=== PATIENT | female | born 1930 | race Caucasian/White ===

== ENCOUNTER → 2019-09-28 | Outpatient (CLI) | payer MEDICARE ==
--- NOTE | 2019-09-28 15:05 | Diagnostic Imaging Report ---
PROCEDURE: X-RAY MODIFIED BARIUM SWALLOW COMPARISON: None. INDICATION: Dysphasia Radiation Details: Fluoroscopy time: 1.18 minutes Cumulative dose: 9.99 mGy DISCUSSION: Fluoroscopic examination was performed in conjunction with speech pathology during swallowing a variety of thin and thick liquid consistencies. Provided images demonstrate a Zenker's diverticulum. No laryngeal penetration or aspiration. CONCLUSION: Modified barium swallow demonstrating Zenker's diverticulum. No laryngeal penetration or aspiration. Please refer to the speech pathology report for further details. Signed by: Mkcinley Godwin MD on 09/28/2019 3:02 PM
== END ==
LOC: DX 11:50
PROVIDERS: ATTEND Internal Medicine Gastroenterology
DX: R13.12 Dysphagia, oropharyngeal phase (principal)
CPT/HCPCS: 74230

== ENCOUNTER 2019-10-15 12:39 | Emergency (ER) | payer MEDICARE, OTHER ==
[~2019-10-15] VITALS: Ht 172.7 cm; Wt 74.8 kg
--- OUTSIDE RECORDS SUMMARY | 2019-10-15 12:42 | XMS REPORT | Encounter Summary ---
Author Organization Unknown Address [address] [place] [address] Phone [phone] Care Team Providers Care Almond Roaster Name Role Phone Dr. Chemo Oconnell 3 [phone] Jazmine Snow (Daughter) 63 [phone] Sergo Herrera MD 105 [phone] Kenny Colin MD 107 [phone] Lloyd Romero MD 111 [phone] Nathan Mcneal 118 [phone] Pierre Hsieh MD 130 [phone] Reason for Visit Hyperlipidemia; Benign essential hypertension; Insomnia; Type 2 diabetes mellitus; cough / congestion Instructions 1. Benign essential hypertension 2. Type 2 diabetes mellitus HbA1c (hemoglobin A1c), blood 3. Hyperlipidemia high cholesterol: care instructions CMP, serum or plasma lipid panel, serum 4. Body mass index 25-29 - overweight learning about healthy weight 5. Senile purpura 6. Peripheral vascular disease 7. Chronic kidney disease stage 4 8. Acute sinusitis Kenalog 40 mg/mL suspension for injection Augmentin 875 mg-125 mg tablet fluticasone propionate 50 mcg/actuation nasal spray,suspension Tessalon Perles 100 mg capsule Discussion Note: None recorded. Plan of Care Reminders Provider Appointments Est Patient 05/13/2019 1:30PM Chemo Navarrete MD Lab HbA1C (Hemoglobin a1C), Blood 02/10/2019 [facility] CMP, Serum or Plasma 02/10/2019 [facility] Lipid Panel, Serum 02/10/2019 [facility] Referral None recorded. Procedures None recorded. Surgeries None recorded. Imaging None recorded. Medications Name Start Date Augmentin 875 mg-125 mg tablet Take 1 tablet every 12 hours by oral route as directed for 10 days. BD Ultra-Fine Mini Pen Needle 31 gauge x 3/16" QD fluticasone propionate 50 mcg/actuation nasal spray,suspension USE 1 SPRAY INTO EACH NOSTRIL TWICE A DAY Kenalog 40 mg/mL suspension for injection Take 40 mg by injection route. Levemir FlexTouch U-100 Insulin 100 unit/mL (3 mL) subcutaneous pen Inject 28 units every day by subcutaneous route. losartan 25 mg tablet QD montelukast 10 mg tablet TAKE 1 TABLET BY MOUTH EVERY DAY OneTouch Delica Lancets 33 gauge use once daily OneTouch Ultra Blue Test Strip USE DIRECTED rosuvastatin 40 mg tablet TAKE 1 TABLET BY MOUTH EVERY DAY IN THE EVENING Tessalon Perles 100 mg capsule Take 1 capsule every 8 hours by oral route as needed. trazodone 100 mg tablet TAKE 1 TABLET BY MOUTH EVERY DAY AT BEDTIME NEEDED Zyrtec QD Medications Administered Name Date Kenalog 40 mg/mL suspension for injection Take 40 mg by injection route. [id number]:00 Vitals Height Weight BMI Blood Pressure 5 ft 6.3 in 165.4 lbs 26.5 kg/m2 122/66 mm[Hg] Lab Results None recorded. Allergies Code Code System Name Reaction Severity Status Onset 86251 RxNorm Neosporin ([id number]) Active NKDA Problems Name Status Onset Date Source Type 2 Diabetes Mellitus without Complication Active 10/09/2016 Hyperlipidemia Active 10/09/2016 Body Mass Index 25-29 - Overweight Active 10/09/2016 Insomnia Active 10/09/2016 Benign Essential Hypertension Active 10/09/2016 Senile Hyperkeratosis Active 10/09/2016 Multiple Skin Tags on Neck Active 10/09/2016 Dysphagia Active 10/09/2016 Zenker's Diverticulum Active 12/10/2016 Hiatal Hernia Active 12/10/2016 Type 2 Diabetes Mellitus Active 01/25/2017 Gastroesophageal Reflux Disease without Esophagitis Active 01/25/2017 Serum Creatinine Raised Active 01/25/2017 Type II Diabetes Mellitus Uncontrolled Active 05/28/2017 Basal Cell Carcinoma of Skin Active 02/10/2019 Procedures Date Name Performed by 12/02/2018 Cancer Surgery Information not available 12/02/2011 Colonoscopy Information not available Hip Replacement Information not available Tonsillectomy Information not available Vaccine List Vaccine Type Hep B, adult mL mL mL influenza, high dose seasonal 10/09/20160.5 mL 09/17/20170.5 mL 09/04/20180.5 mL pneumococcal conjugate PCV 13 10/09/20160.5 mL pneumococcal polysaccharide PPV23 01/21/20180.5 mL zoster 10/23/20160.65 mL Social History Smoking Status Never Smoker Past Encounters 02/10/2019 Benign Essential Hypertension; Type 2 Diabetes Mellitus; Hyperlipidemia; Body Mass Index 25-29 - Overweight; Senile Purpura; Peripheral Vascular Disease; Chronic Kidney Disease Stage 4; Acute Sinusitis Chemo Navarrete MD: [address] [place] [address], Ph. History of Present Illness Note:F/u on chronic conditions. Compliant with meds. Non compliant with diet or exercise. Glucose readings at home 80s-100s. Not checking BPs at home. No side effects with meds. <div>Pt is complaining of nasal congestion, productive cough and sore throat since 2 weeks ago. Denies fever, sob, wheezing or chest pain< /div> Review of Systems:ROS as noted in the HPI Review of Systems None recorded. Physical Exam General Adult Exam (male) Reported By: Patient Constitutional: General Appearance: healthy-appearing. Level of Distress: NAD Psychiatric: Insight: good judgement. Mental Status: active and alert, normal mood, normal affect. Orientation: to time, to place, to person. Memory: recent memory normal, remote memory normal Eyes: Lids and Conjunctivae: non-injected, no discharge. EOM: EOMI ENMT: Ears: TMs clear. Nose: nares non-patent, nasal discharge--purulent, post nasal drip. Lips, Teeth, and Gums: no mouth or lip ulcers. Oropharynx: moist mucous membranes, erythema, tonsils absent Neck: Neck: supple, trachea midline. Lymph Nodes: cervical LAD. Thyroid: no enlargement, non-tender Lungs: Auscultation: breath sounds normal Cardiovascular: Heart Auscultation: RRR, normal S1, normal S2, no murmurs Musculoskeletal:: Motor Strength and Tone: normal, normal tone. Joints, Bones, and Muscles: normal movement of all extremities. Extremities: no edema Neurologic: Gait and Station: normal gait Skin: Inspection and palpation: ; ecchymoses in forearms
--- OUTSIDE RECORDS SUMMARY | 2019-10-15 12:42 | XMS REPORT | Encounter Summary ---
Author Organization Unknown Address [address] [place] [address] Phone [phone] Care Team Providers Care Plant Technical Specialist Name Role Phone Dr. Chemo Oconnell 3 [phone] [facility] 2 [phone] Jazmine Snow (Daughter) 63 [phone] Sergo Herrera MD 105 [phone] Kenny Colin MD 107 [phone] Lloyd Romero MD 111 [phone] Nathan Mcneal 118 [phone] Pierre Hsieh MD 130 [phone] Reason for Visit lab only visit Instructions 1. Hyperkalemia potassium, serum Discussion Note: None recorded. Patient educational handouts: No information available. Plan of Care Reminders Provider Appointments Est Patient 11/09/2019 4:00PM Sangita Velazquez MD Lab Potassium, Serum 09/01/2019 [facility] Referral None recorded. Procedures None recorded. Surgeries None recorded. Imaging None recorded. Medications Name Start Date Accu-Chek Guide strips USE ONCE DAILY BD Ultra-Fine Mini Pen Needle 31 gauge x 3/16" QD Claritin-D 24 Hour 1 tablet once a day Dymista 137 mcg-50 mcg/spray nasal spray [place] 1 spray every day by nasal route for 30 days. 08/13/2019 Levemir FlexTouch U-100 Insulin 100 unit/mL (3 mL) subcutaneous pen INJECT 30 UNITS SUBCUTANEOUSLY EVERY DAY Linzess 145 mcg capsule Take 1 capsule every day by oral route as needed. Linzess 72 mcg capsule Take 1 capsule every day by oral route as needed for 30 days. losartan 25 mg tablet TAKE 1 TABLET BY MOUTH EVERY DAY montelukast 10 mg tablet TAKE 1 TABLET BY MOUTH EVERY DAY neomycin 3.5 mg/g-polymyxin B 10,000 unit/g-dexameth 0.1 % eye oint Apply 1 application twice a day by ophthalmic route. olopatadine 0.2 % eye drops Instill 1 drop every day by ophthalmic route as needed. 06/19/2019 Probiotic DAILY rosuvastatin 40 mg tablet TAKE 1 TABLET BY MOUTH EVERY DAY IN THE EVENING trazodone 100 mg tablet TAKE 1 TABLET BY MOUTH EVERY DAY AT BEDTIME NEEDED Medications Administered None recorded. Vitals None recorded. Lab Results Date Name Specimen Result Interpretation Description Value Range Status Address 08/13/2019 Microalbumin/creatinine, Ratio, Urine Microalbumin Random Urine 83 ug/mL Final [facility]: [address] Normal Creatinine Random Urine 107.4 mg/dL 20.0-320.0 mg/dL Final [facility]: [address] High Microalbumin/creatinine (Random Urine) Ratio Calculated 77 mcg/mg creat Final [facility]: [address] 08/13/2019 CMP, Serum or Plasma High Alt 103 U/L 0-55 U/L Final [facility]: [address] High Ast 54 U/L 5-34 U/L Final [facility]: [address] High Bun 33.4 mg/dL 9.8-25.0 mg/dL Final [facility]: [address] Alk Phos 111 unit/L 40-150 unit/L Final [facility]: [address] High Glucose 135 mg/dL 70-99 mg/dL Final [facility]: [address] Albumin 3.5 g/dL 3.4-5.1 g/dL Final [facility]: [address] High Creatinine 1.72 mg/dL 0.57-1.11 mg/dL Final [facility]: [address] ABNORMAL eGFR Non- 28 mL/min/1.73m2 Final [facility]: [address] Total Bilirubin 0.3 mg/dL 0.2-1.2 mg/dL Final [facility]: [address] ABNORMAL eGFR - 34 mL/min/1.73m2 Final [facility]: [address] Sodium 142 mEq/L 135-145 mEq/L Final [facility]: [address] High Potassium 5.4 mEq/L 3.5-5.1 mEq/L Final [facility]: [address] Chloride 107 mmol/L 98-110 mmol/L Final [facility]: [address] Total Protein 6.4 g/dL 6.1-8.2 g/dL Final [facility]: [address] Calcium 9.2 mg/dL 8.6-10.4 mg/dL Final [facility]: [address] Co2 27.6 mmol/L 20.0-32.0 mmol/L Final [facility]: [address] Anion Gap 7 calc Final [facility]: [address] 08/13/2019 Lipid Panel, Serum Low Hdl 39 mg/dL Final [facility]: [address] High Triglyceride 163 mg/dL 0-150 mg/dL Final [facility]: [address] VLDL (Calculated) 33 mg/dL Final [facility]: [address] cholesterol/HDL Ratio 3.7 mg/dL Final [facility]: [address] non-HDL Cholesterol (Calculated) 104 mg/dL 0-160 mg/dL Final [facility]: [address] Cholesterol 143 mg/dL 0-200 mg/dL Final [facility]: [address] LDL (Calculated) 71 mg/dL 0-130 mg/dL Final [facility]: [address] 08/13/2019 HbA1C (Hemoglobin a1C), Blood High A1C W/eag 8.4 % 1.0-5.7 % Final [facility]: [address] Average Blood Glucose 194 mg/dL Final [facility]: [address] Allergies Code Code System Name Reaction Severity Status Onset 27173 RxNorm Neosporin ([id number]) Active Problems Name Status Onset Date Source Type 2 Diabetes Mellitus without Complication Active 10/09/2016 Hyperlipidemia Active 10/09/2016 Body Mass Index 25-29 - Overweight Active 10/09/2016 Insomnia Active 10/09/2016 Benign Essential Hypertension Active 10/09/2016 Multiple Skin Tags on Neck Active 10/09/2016 Senile Hyperkeratosis Active 10/09/2016 Dysphagia Active 10/09/2016 Zenker's Diverticulum Active 12/10/2016 Hiatal Hernia Active 12/10/2016 Type 2 Diabetes Mellitus Active 01/25/2017 Gastroesophageal Reflux Disease without Esophagitis Active 01/25/2017 Serum Creatinine Raised Active 01/25/2017 Type II Diabetes Mellitus Uncontrolled Active 05/28/2017 Basal Cell Carcinoma of Skin Active 02/10/2019 Procedures Date Name Performed by 08/12/2019 Eye Surgery Procedure Information not available 12/02/2018 Cancer Surgery Information not available Colonoscopy Information not available Hip Replacement Information not available Tonsillectomy Information not available 08/23/2019 US, Abdomen [facility] (Imaging) [address] [place] [address] (Work Place) Vaccine List Vaccine Type Hep B, adult mL 02/22/20171 mL 07/25/20171 mL influenza, high dose seasonal 10/09/20160.5 mL 09/17/20170.5 mL 09/04/20180.5 mL 08/13/20190.5 mL pneumococcal conjugate PCV 13 10/09/20160.5 mL pneumococcal polysaccharide PPV23 01/21/20180.5 mL zoster 10/23/20160.65 mL Social History Tobacco Smoking Status Never Smoker Past Encounters 09/01/2019 Hyperkalemia Chemo Navarrete MD: [address] [place] [address], Ph. 08/13/2019 Adult Health Examination; Body Mass Index 25-29 - Overweight; Depression Screening; Alcohol Consumption Screening; Influenza Vaccination; Benign Essential Hypertension; Hyperlipidemia; Type 2 Diabetes Mellitus; Chronic Kidney Disease Stage 3; At Risk for Falls; Chronic Constipation; Dysphagia Chemo Navarrete MD: [address] [place] [address], Ph. History of Present Illness None recorded. Review of Systems None recorded. Physical Exam None recorded.
--- OUTSIDE RECORDS SUMMARY | 2019-10-15 12:42 | XMS REPORT | Encounter Summary ---
Author Organization Unknown Address [address] [place] [address] Phone [phone] Care Team Providers Care Scout Professional Sports Name Role Phone Dr. Chemo Oconnell 3 [phone] [facility] 2 [phone] Jazmine Snow (Daughter) 63 [phone] Sergo Herrera MD 105 [phone] Kenny Colin MD 107 [phone] Lloyd Romero MD 111 [phone] Nathan Mcneal 118 [phone] Pierre Hsieh MD 130 [phone] Reason for Visit lab only visit Instructions 1. Type 2 diabetes mellitus HbA1c (hemoglobin A1c), blood Discussion Note: None recorded. Patient educational handouts: No information available. Plan of Care Reminders Provider Appointments Est Patient 08/13/2019 4:30PM Chemo Navarrete MD Lab HbA1C (Hemoglobin a1C), Blood 05/22/2019 [facility] Referral None recorded. Procedures None recorded. Surgeries None recorded. Imaging None recorded. Medications Name Start Date BD Ultra-Fine Mini Pen Needle 31 gauge x 3/16" QD Claritin-D 12 Hour take one tablet daily Dymista 137 mcg-50 mcg/spray nasal spray [place] 1 spray twice a day by intranasal route as directed for 30 days. fluticasone propionate 50 mcg/actuation nasal spray,suspension USE 1 SPRAY INTO EACH NOSTRIL TWICE A DAY Levemir FlexTouch U-100 Insulin 100 unit/mL (3 mL) subcutaneous pen Inject 30 units every day by subcutaneous route for 90 days. Linzess 145 mcg capsule 05/14/2019 Linzess 72 mcg capsule Take 1 capsule every day by oral route as needed for 30 days. losartan 25 mg tablet Take 1 tablet every day by oral route. montelukast 10 mg tablet TAKE 1 TABLET BY MOUTH EVERY DAY olopatadine 0.2 % eye drops as needed OneTouch Delica Lancets 33 gauge use once daily OneTouch Ultra Blue Test Strip USE DIRECTED rosuvastatin 40 mg tablet TAKE 1 TABLET BY MOUTH EVERY DAY IN THE EVENING trazodone 100 mg tablet TAKE 1 TABLET BY MOUTH EVERY DAY AT BEDTIME NEEDED Medications Administered None recorded. Vitals None recorded. Lab Results None recorded. Allergies Code Code System Name Reaction Severity Status Onset 79667 RxNorm Neosporin ([id number]) Active Problems Name Status Onset Date Source [...] Type Hep B, adult mL 02/22/20171 mL mL influenza, high dose seasonal 10/09/20160.5 mL 09/17/20170.5 mL 09/04/20180.5 mL pneumococcal conjugate PCV 13 10/09/20160.5 mL pneumococcal polysaccharide PPV23 01/21/20180.5 mL zoster 10/23/20160.65 mL Social History Smoking Status Never Smoker Past Encounters 05/22/2019 Type 2 Diabetes Mellitus Chemo Navarrete MD: [address] [place] [address], Ph. 05/14/2019 Benign Essential Hypertension; Insomnia; Type 2 Diabetes Mellitus without Complication; Hyperlipidemia; Multiple Environmental Allergies; Body Mass Index 25-29 - Overweight; Screening for Malignant Neoplasm of Breast; Major Depressive Disorder; Secondary Hyperparathyroidism; Chronic Constipation Chemo Navarrete MD: [address] [place] [address], Ph. History of Present Illness None recorded. Review of Systems None recorded. Physical Exam None recorded.
--- OUTSIDE RECORDS SUMMARY | 2019-10-15 12:42 | XMS REPORT | Encounter Summary ---
Author Organization Unknown Address [address] [place] [address] Phone [phone] Care Team Providers Care Bomb Loader Name Role Phone Dr. Chemo Oconnell 3 [phone] [facility] 2 [phone] Jazmine Snow (Daughter) 63 [phone] Sergo Herrera MD 105 [phone] Kenny Colin MD 107 [phone] Lloyd Romero MD 111 [phone] Nathan Mcneal 118 [phone] Pierre Hsieh MD 130 [phone] Reason for Visit sore throat Instructions 1. Seasonal allergy Bromfed DM 2 mg-30 mg-10 mg/5 mL oral syrup Medrol (Markel) 4 mg tablets in a dose pack loratadine-pseudoephedrine ER 10 mg-240 mg tablet,extended [id number] 2. Type 2 diabetes mellitus without complication 3. Body mass index 25-29 - overweight learning about healthy weight 4. Benign essential hypertension Discussion Note: None recorded. Plan of Care Reminders Provider Appointments Est Patient 05/13/2019 1:30PM Chemo Navarrete MD Lab None recorded. Referral None recorded. Procedures None recorded. Surgeries None recorded. Imaging None recorded. Medications Name Start Date amoxicillin 875 mg-potassium clavulanate 125 mg tablet Take 1 tablet every 12 hours by oral route as directed for 10 days. BD Ultra-Fine Mini Pen Needle 31 gauge x 3/16" QD benzonatate 100 mg capsule Take 1 capsule every 8 hours by oral route as needed. Bromfed DM 2 mg-30 mg-10 mg/5 mL oral syrup Take 10 mL every 6-8 hours by oral route as needed. fluticasone propionate 50 mcg/actuation nasal spray,suspension USE 1 SPRAY INTO EACH NOSTRIL TWICE A DAY Levemir FlexTouch U-100 Insulin 100 unit/mL (3 mL) subcutaneous pen Inject 28 units every day by subcutaneous route. loratadine-pseudoephedrine ER 10 mg-240 mg tablet,extended [id number] Take 1 tablet every day by oral route as needed for 14 days. losartan 25 mg tablet QD Medrol (Markel) 4 mg tablets in a dose pack UD montelukast 10 mg tablet TAKE 1 TABLET BY MOUTH EVERY DAY olopatadine 0.2 % eye drops MozidoToGeoPalz Delica Lancets 33 gauge use once daily MozidoToGeoPalz Ultra Blue Test Strip USE DIRECTED rosuvastatin 40 mg tablet TAKE 1 TABLET BY MOUTH EVERY DAY IN THE EVENING trazodone 100 mg tablet TAKE 1 TABLET BY MOUTH EVERY DAY AT BEDTIME NEEDED Zyrtec QD Medications Administered None recorded. Vitals Height Weight BMI Blood Pressure 5 ft 6.3 in 168 lbs 26.9 kg/m2 130/64 mm[Hg] Lab Results Date Name Specimen Result Interpretation Description Value Range Status Address 02/10/2019 CMP, Serum or Plasma Alt 18 U/L 0-55 U/L Final [facility] Laboratory: [address] Ast 22 U/L 5-34 U/L Final [facility] Laboratory: [address] High Bun 25.0 mg/dL 9.8-20.1 mg/dL Final [facility] Laboratory: [address] Alk Phos 124 unit/L 40-150 unit/L Final [facility] Laboratory: [address] High Glucose 241 mg/dL 70-99 mg/dL Final [facility] Laboratory: [address] Low Albumin 3.3 g/dL 3.5-5.0 g/dL Final [facility] Laboratory: [address] High Creatinine 1.65 mg/dL 0.57-1.11 mg/dL Final [facility] Laboratory: [address] ABNORMAL eGFR Non- 29 mL/min/1.73m2 Final [facility] Laboratory: [address] Total Bilirubin 0.4 mg/dL 0.2-1.2 mg/dL Final [facility] Laboratory: [address] Hernadez [address] ABNORMAL eGFR - 36 mL/min/1.73m2 Final [facility] Laboratory: [address] Sodium 140 mEq/L 136-145 mEq/L Final [facility] Laboratory: [address] Potassium 4.7 mEq/L 3.5-5.1 mEq/L Final [facility] Laboratory: [address] Chloride 106 mmol/L 98-107 mmol/L Final [facility] Laboratory: [address] Low Total Protein 6.3 g/dL 6.4-8.3 g/dL Final [facility] Laboratory: [address] Calcium 9.1 mg/dL 8.4-10.2 mg/dL Final [facility] Laboratory: [address] Co2 25.5 mmol/L 23.0-31.0 mmol/L Final [facility]: [address] Anion Gap 9 calc Final [facility] Laboratory: [address] 02/10/2019 Lipid Panel, Serum Low Hdl 33 mg/dL 40-60 mg/dL Final [facility]: [address] High Triglyceride 198 mg/dL 0-149 mg/dL Final [facility] Laboratory: [address] VLDL Calc. 40 mg/dL Final [facility] Laboratory: [address] cholesterol/HDL Ratio 4.3 mg/dL Final [facility] Laboratory: [address] non-HDL Cholesterol Calc. 109 mg/dL 0-160 mg/dL Final [facility] Laboratory: [address] Cholesterol 142 mg/dL 0-199 mg/dL Final [facility] Laboratory: [address] LDL Calc. 69 mg/dL 0-130 mg/dL Final [facility] Laboratory: [address]adez [address] 02/10/2019 HbA1C (Hemoglobin a1C), Blood High A1C W/eag 8.9 % 1.0-5.7 % Final [facility] Laboratory: [address] Average Blood Glucose 209 mg/dL Final [facility] Laboratory: [address] Allergies Code Code System Name Reaction Severity Status Onset 23534 RxNorm Neosporin (Yul-vhl-oywui) Active NKDA Problems Name Status Onset Date [...] History Smoking Status Never Smoker Past Encounters 03/13/2019 Seasonal Allergy; Type 2 Diabetes Mellitus without Complication; Body Mass Index 25-29 - Overweight; Benign Essential Hypertension Sangita Velazquez MD: [address] [place] [address], Ph. 02/10/2019 Benign Essential Hypertension; Type 2 Diabetes Mellitus; Hyperlipidemia; Body Mass Index 25-29 - Overweight; Senile Purpura; Peripheral Vascular Disease; Chronic Kidney Disease Stage 4; Acute Sinusitis Chemo Navarrete MD: [address] [place] [address], Ph. History of Present Illness Note:88yo female presents for evaluation of sore throat. Is a pt of Dr Oconnell. Was in to see him last month & was found to have increased A1c of 8.9%. Increased Levemir from 28u to 35units, but found morning blood sugars to be too low (lowest blood sugar about 58), so pt decreased Levemir to 30units qpm. Took the 30units past 3 nights - blood sugar yesterday morning was 74.<div>
<div> Still having trouble with sore throat, nasal congestion, dry cough for past noel h. No fever, shortness of breath, wheezing or chest pain. No ear pain.</div><div >Does have seasonal allergies -taking Zyrtec, Singulair, and Flonase bid.</div>< div> in Jan & was sick with sinus infection then, too.< /div><div>Had kenalog injection last visit with some improvement, but not resolution. Took course of Augmentin & tessalon perles.</div><div>NKDA.</div ><div>Had tonsils out at age 6yo. Had freq strep as child, always with "weak" throat.</div><div>Never smoked.</div><div></div></div> Review of Systems:ROS as noted in the HPI Review of Systems Comprehensive General Adult ROS Reported By: Patient Constitutional: Constitutional: no fever Eyes: Eyes: no vision change ENMT: Ears: no difficulty hearing, no ear pain. Nose: no frequent nosebleeds, nose problems, sinus problems. Mouth/Throat: sore throat Cardiovascular: Cardiovascular: no chest pain Respiratory: Respiratory: no wheezing, no shortness of breath, no coughing up blood, cough Gastrointestinal: Gastrointestinal: no abdominal pain, no nausea, no vomiting, no diarrhea Neurologic: Neurologic: no headaches Endocrine: Endocrine: no fatigue Allergic/Immunologic: Allergy/Immunologic: runny nose, sinus pressure Physical Exam General Adult Exam (male), Upper Respiratory Infection Exam Comprehensive Reported By: Patient Constitutional: General Appearance: healthy-appearing; elderly, pleasant. Level of Distress: NAD Psychiatric: Insight: good judgement. Mental Status: active and alert, normal mood, normal affect. Orientation: to time, to place, to person. Memory: recent memory normal, remote memory normal Eyes: Lids and Conjunctivae: non-injected, no discharge. Pupils: PERRLA. EOM: EOMI ENMT: Ears: TMs clear. Nose: no lesions on external nose, no sinus tenderness, pink and moist, nares non-patent, nasal discharge--purulent, post nasal drip. Lips, Teeth, and Gums: no mouth or lip ulcers. Oropharynx: moist mucous membranes, erythema, tonsils absent Neck: Neck: supple, trachea midline, symmetrical. Lymph Nodes: cervical LAD. Thyroid: no enlargement, non-tender Lungs: Auscultation: breath sounds normal, good air movement, no wheezing, no rales/crackles Cardiovascular: Heart Auscultation: RRR, normal S1, normal S2, no murmurs. Auscultation regular rate and rhythm. Observation/Palpation of peripheral vascular system carotid pulse normal Musculoskeletal:: Motor Strength and Tone: normal, normal tone. Joints, Bones, and Muscles: normal movement of all extremities. Extremities: no edema Neurologic: Gait and Station: normal gait Skin: Inspection and palpation: ; ecchymoses in forearms. Inspection and palpation: no rash Ears: Right External auditory canal normal appearance. Left External auditory canal normal appearance. Right Tympanic membrane pearly gallagher, landmarks clear. Left Tympanic membrane: pearly gallagher, landmarks clear Oral Cavity/Mouth: Oral Mucosa: normal Lymph Nodes: Cervical no palpable lymph node enlargement, no submandibular adenopathy, no posterior cervical adenopathy, no anterior cervical adenopathy
--- OUTSIDE RECORDS SUMMARY | 2019-10-15 12:42 | XMS REPORT ---
Author Author [facility] Address Unknown Phone Unavailable Care Team Providers Care Net Development Manager Name Role Phone KAMAR TRENA Unavailable Unavailable Problems This patient has no known problems. Allergies, Adverse Reactions, Alerts This patient has no known allergies or adverse reactions. Medications This patient has no known medications. Results Test Description Test Time Test Comments Text Results Atomic Results Result Comments MODIFIED BA. SWALLOW 2019-09-28 15:01:00 [place] [address] Patient Name: KELSY DAWSON MR #: [id number] : 1930 Age/Sex: 89/F Req #: [id number] [facility] Physician: Ordered by: TRENA GALVIN MD Report #: [id number] Location: DX Room/Bed: Procedure: [id number] DX/MODIFIED BA. SWALLOW Exam Date: 09/28/19 Exam Time: 1231 REPORT STATUS: Signed PROCEDURE: X-RAY MODIFIED BARIUM SWALLOW COMPARISON: None. INDICATION: Dysphasia Radiation Details: Fluoroscopy time: 1.18 minutes Cumulative dose: 9.99 mGy DISCUSSION: Fluoroscopic examination was performed in conjunction with speech pathology during swallowing a variety of thin and thick liquid consistencies. Provided images demonstrate a Zenker's diverticulum. No laryngeal penetration or aspiration. CONCLUSION: Modified barium swallow demonstrating Zenker's diverticulum. No laryngeal penetration or aspiration. Please refer to the speech pathology report for further details. Signed by: Jr Godwin MD on 09/28/2019 3:02 PM Dictated By: RJ GODWIN MD 1502 Transcribed By: FREDY on 09/28/191501 COPY TO: TRENA GALVIN MD
--- OUTSIDE RECORDS SUMMARY | 2019-10-15 12:42 | XMS REPORT | Encounter Summary ---
Author Organization Unknown Address [address] [place] [address] Phone [phone] Care Team Providers Care Svp Marketing Name Role Phone Dr. Chemo Oconnell 3 [phone] [facility] 2 [phone] Jazmine Snow (Daughter) 63 [phone] Sergo Herrera MD 105 [phone] Kenny Colin MD 107 [phone] Lloyd Romero MD 111 [phone] Nathan Mcneal 118 [phone] Pierre Hsieh MD 130 [phone] Reason for Visit Hyperlipidemia; Benign essential hypertension; Type 2 diabetes mellitus; Annual Depression Screening; AWV Annual Wellness Visit Female (VFP); Advance Care Plan; other - see typed reason; constipation Instructions 1. Adult health examination 2. Body mass index 25-29 - overweight learning about healthy weight 3. Depression screening learning about depression 4. Alcohol consumption screening learning about alcohol misuse 5. Influenza vaccination Fluzone High-Dose 2019-20 (PF) 180 mcg/0.5 mL intramuscular syringe 6. Benign essential hypertension 7. Hyperlipidemia high cholesterol: care instructions lipid panel, serum CMP, serum or plasma 8. Type 2 diabetes mellitus microalbumin/creatinine, ratio, urine HbA1c (hemoglobin A1c), blood 9. Chronic kidney disease stage 3 10. At risk for falls preventing falls: care instructions 11. Chronic constipation Linzess 145 mcg capsule gastroenterology referral - *Please call the patient and make an appointment* PLEASE SEND BACK CONSULT NOTES TO [phone] 12. Dysphagia gastroenterology referral Discussion Note: None recorded. Plan of Care Patient Instructions It was good to see you in the office today for your Medicare Annual Wellness Visit. You have been provided some information on healthy nutrition, including a diet rich in fruits and vegetables, minimizing simple carbohydrates, salt, and saturated fats. I want to encourage regular cardiovascular exercise such as walking at least 30 minutes daily, 5 times per week. Please remember to schedule any preventive health measures that we talked about today. You have also been provided education on fall prevention and community- based lifestyle interventions to help reduce health risks and promote healthy living in your Annual Wellness folder. Screening Recommendations 1. Vaccines Pneumonia: No further need Influenza: Ordered 2. Mammography Screening: No further screening necessary at this time 3. Colorectal Cancer Screening: IFOB (every year) Recommended today 4. Annual Depression Screening 5. Annual Alcohol Screening 6. Annual Fall Risk Screening 7. Annual Health Risk Assessment Patient Instructions on Filing Advance Directives Be sure that you have easy access to your paperwork for your medical power of attorney at law and advanced directives. Be sure that the designated person as well as important family members have copies of those forms as well. Please have contact information of your designee readily available. In the event of hospitalization, please bring those important documents with you for reference. Reminders Provider Appointments Est Patient 11/09/2019 4:00PM Sangita Velazquez MD Lab Microalbumin/creatinine, Ratio, Urine 08/13/2019 [facility] HbA1C (Hemoglobin a1C), Blood 08/13/2019 [facility] Lipid Panel, Serum 08/13/2019 [facility] CMP, Serum or Plasma 08/13/2019 [facility] Referral Gastroenterology Referral 08/13/2019 Kenny Colin MD Gastroenterology Referral 08/13/2019 Kenny Colin MD Procedures None recorded. Surgeries None recorded. Imaging None recorded. Medications Name Start Date Accu-Chek Guide strips USE ONCE DAILY BD Ultra-Fine Mini Pen Needle 31 gauge x 3/16" QD Claritin-D 24 Hour 1 tablet once a day Dymista 137 mcg-50 mcg/spray nasal spray [place] 1 spray every day by nasal route for 30 days. 08/13/2019 Levemir FlexTouch U-100 Insulin 100 unit/mL (3 mL) subcutaneous pen Inject 22 units every day by subcutaneous route for 90 days. Linzess 145 mcg capsule Take 1 capsule [...] BEDTIME NEEDED Medications Administered None recorded. Vitals Height Weight BMI Blood Pressure 5 ft 6 in 167.8 lbs 27.1 kg/m2 120/62 mm[Hg] Lab Results None recorded. Allergies Code Code System Name Reaction Severity Status Onset 65177 RxNorm Neosporin (Cno-yjw-rvelp) Active Problems Name Status Onset Date Source [...] Tobacco Smoking Status Never Smoker Past Encounters 08/13/2019 Adult Health Examination; Body Mass Index 25-29 - Overweight; Depression Screening; Alcohol Consumption Screening; Influenza Vaccination; Benign Essential Hypertension; Hyperlipidemia; Type 2 Diabetes Mellitus; Chronic Kidney Disease Stage 3; At Risk for Falls; Chronic Constipation; Dysphagia Chemo Navarrete MD: [address] [place] [address], Ph. History of Present Illness Mini Cog Reported By: Patient Functional Ability: Personal/Social/ Draw a clock and write in the numbers in the correct place, and set the time to 10 minutes after 11 o'clock was completed correctly? Yes, 3 word recall: Your nurse or doctor will ask you to remember 3 words. In 5 minutes, they will ask you to repeat them. Patient recalled 2 words Opioid Use Assessment Reported By: Patient Opioid Use Assessment:: Current Use of Opioids : no use of opioids (no further questions required) Note:F/u on chronic conditions. Needs refill in meds. Compliant with meds. Non compliant with diet or exercise. Glucose readings at home 80s-115s fasting. Not checking BPs at home. No side effects with meds. {{Yes|No}} Review of Systems Comprehensive General Adult ROS Reported By: Patient Constitutional: Constitutional: no fever Eyes: Eyes: no vision change ENMT: Ears: no ear pain. Nose: no sinus problems. Mouth/Throat: no sore throat Cardiovascular: Cardiovascular: no chest pain, no palpitations, no lightheadedness Respiratory: Respiratory: no cough, no wheezing, no shortness of breath Gastrointestinal: Gastrointestinal: no abdominal pain, no nausea, no vomiting, no diarrhea, constipation Musculoskeletal: Musculoskeletal: no muscle aches, no swelling in the extremities Neurologic: Neurologic: no loss of consciousness, no headaches Psychiatric: Psych: no depression, no alcohol abuse, no anxiety, no suicidal thoughts Physical Exam General Adult Exam (male) Reported By: Patient Constitutional: General Appearance: healthy-appearing. Level of Distress: NAD Eyes: Lids and Conjunctivae: non-injected, no discharge. EOM: EOMI ENMT: Ears: TMs clear. Nose: no sinus tenderness. Lips, Teeth, and Gums: no mouth or lip ulcers. Oropharynx: moist mucous membranes Neck: Neck: supple, trachea midline. Thyroid: no enlargement, non-tender Lungs: Auscultation: breath sounds normal Cardiovascular: Heart Auscultation: RRR, normal S1, normal S2, no murmurs. Neck vessels: no carotid bruits. Pulses including femoral / pedal: normal throughout Abdomen: Inspection and Palpation: soft, non-distended, no tenderness, no guarding Neurologic: Gait and Station: normal gait Skin: Inspection and palpation: no rash, no lesions
--- OUTSIDE RECORDS SUMMARY | 2019-10-15 12:42 | XMS REPORT | Encounter Summary ---
Author Organization Unknown Address [address] [place] [id number] Phone [phone] Care Team Providers Care Materials Specialist Name Role Phone Dr. Chemo Oconnell 3 [phone] [facility] 2 [phone] Jazmine Snow (Daughter) 63 [phone] Sergo Herrera MD 105 [phone] Kenny Colin MD 107 [phone] Lloyd Romero MD 111 [phone] Nathan Mcneal 118 [phone] Pierre Hsieh MD 130 [phone] Reason for Visit Hyperlipidemia; Benign essential hypertension; Type 2 diabetes mellitus without complication; Insomnia Instructions 1. Benign essential hypertension losartan 25 mg tablet 2. Insomnia trazodone 100 mg tablet 3. Type 2 diabetes mellitus without complication Levemir FlexTouch U-100 Insulin 100 unit/mL (3 mL) subcutaneous pen HbA1c (hemoglobin A1c), blood microalbumin:creatinine ratio, urine 4. Hyperlipidemia rosuvastatin 40 mg tablet high cholesterol: care instructions CMP, serum or plasma lipid panel, serum 5. Multiple environmental allergies montelukast 10 mg tablet Dymista 137 mcg-50 mcg/spray nasal spray 6. Body mass index 25-29 - overweight learning about healthy weight 7. Screening for malignant neoplasm of breast 8. Major depressive disorder 9. Secondary hyperparathyroidism 10. Chronic constipation Linzess 72 mcg capsule Discussion Note: None recorded. Plan of Care Reminders Provider Appointments Est Patient 08/13/2019 4:30PM Chemo Navarrete MD Lab HbA1C (Hemoglobin a1C), Blood 05/14/2019 [facility] CMP, Serum or Plasma 05/14/2019 [facility] Lipid Panel, Serum 05/14/2019 [facility] Microalbumin:creatinine Ratio, Urine 05/14/2019 [facility] Referral None recorded. Procedures None recorded. Surgeries None recorded. Imaging None recorded. Medications Name Start Date BD Ultra-Fine Mini Pen Needle 31 gauge x 3/16" QD Claritin-D 12 Hour take one tablet daily Dymista 137 mcg-50 mcg/spray nasal spray Sneads 1 spray twice a day by intranasal [...] BMI Blood Pressure 5 ft 6.3 in 170.4 lbs 27.3 kg/m2 124/60 mm[Hg] Lab Results None recorded. Allergies Code Code System Name Reaction Severity Status Onset 23251 RxNorm Neosporin (Zvh-amw-sskvv) Active Problems Name Status Onset Date Source [...] History Smoking Status Never Smoker Past Encounters 05/14/2019 Benign Essential Hypertension; Insomnia; Type 2 Diabetes Mellitus without Complication; Hyperlipidemia; Multiple Environmental Allergies; Body Mass Index 25-29 - Overweight; Screening for Malignant Neoplasm of Breast; Major Depressive Disorder; Secondary Hyperparathyroidism; Chronic Constipation Chemo Navarrete MD: [address] [place] [address], Ph. History of Present Illness Note:F/u on chronic conditions. Needs refills. Compliant with meds. Non compliant with diet or exercise. Not checking BPs at home. Glucose readings at home 60s-190s fasting. Most commonly 70s-90s. No side effects with meds. No new concerns. Review of Systems Comprehensive General Adult ROS Reported By: Patient Constitutional: Constitutional: no fever Eyes: Eyes: no vision change ENMT: Ears: no ear pain. Nose: no sinus problems. Mouth/Throat: no sore throat Cardiovascular: Cardiovascular: no chest pain, no palpitations, no lightheadedness Respiratory: Respiratory: no cough, no wheezing, no shortness of breath Gastrointestinal: Gastrointestinal: no abdominal pain, no nausea, no vomiting, no constipation, no diarrhea Musculoskeletal: Musculoskeletal: no muscle aches, no swelling in the extremities Neurologic: Neurologic: no loss of consciousness, no headaches Psychiatric: Psych: no depression, no alcohol abuse, no anxiety, no suicidal thoughts Physical Exam General Adult Exam (male) Reported By: Patient Constitutional: General Appearance: healthy-appearing, overweight. Level of Distress: NAD. Ambulation: ambulating normally Psychiatric: Insight: good judgement. Mental Status: active [...] S2, no murmurs. Neck vessels: no carotid bruits Musculoskeletal:: Motor Strength and Tone: normal, normal tone. Joints, Bones, and Muscles: normal movement of all extremities. Extremities: no edema Neurologic: Gait and Station: normal gait
--- OUTSIDE RECORDS SUMMARY | 2019-10-15 12:42 | XMS REPORT | Encounter Summary ---
Author Organization Unknown Address [address] [place] [address] Phone [phone] Care Team Providers Care Liner Inserter Name Role Phone Dr. Chemo Oconnell 3 [phone] [facility] 2 [phone] Jazmine Snow (Daughter) 63 [phone] Sergo Herrera MD 105 [phone] Kenny Colin MD 107 [phone] Lloyd Romero MD 111 [phone] Nathan Mcneal 118 [phone] Pierre Hsieh MD 130 [phone] Reason for Visit urinary issues/incontinence; other - see typed reason Instructions 1. Acute urinary tract infection culture, urine urinalysis, dipstick Bactrim DS 800 mg-160 mg tablet 2. Chronic kidney disease nephrology referral - *Please call the patient and make an appointment* PLEASE SEND BACK CONSULT NOTES TO [phone] 3. Overweight Discussion Note: None recorded. Patient educational handouts: No information available. Plan of Care Reminders Provider Appointments Est Patient 08/13/2019 4:30PM Chemo Navarrete MD Lab Culture, Urine 06/19/2019 [facility] Laboratory Urinalysis, Dipstick 06/19/2019 [facility] ([facility] [place] Referral Nephrology Referral 06/19/2019 [facility] Mcneal Procedures None recorded. Surgeries None recorded. Imaging None recorded. Medications Name Start Date Accu-Chek Diane Plus test strips Take 1 strip by miscell. route. Bactrim DS 800 mg-160 mg tablet Take 1 tablet every 12 hours by oral route as directed for 10 days. BD Ultra-Fine Mini Pen Needle 31 gauge x 3/16" QD Claritin-D 24 Hour 1 tablet once a day Levemir FlexTouch U-100 Insulin 100 unit/mL (3 mL) subcutaneous pen Inject 22 units every day by subcutaneous route for 90 days. Linzess 72 mcg capsule Take 1 capsule every day by oral route as needed for 30 days. losartan 25 mg tablet Take 1 tablet every day by oral route. montelukast 10 mg tablet TAKE 1 TABLET BY MOUTH EVERY DAY olopatadine 0.2 % eye drops Instill 1 drop every day by ophthalmic route as needed. 06/19/2019 rosuvastatin 40 mg tablet TAKE 1 TABLET BY MOUTH EVERY DAY IN THE EVENING trazodone 100 mg tablet TAKE 1 TABLET BY MOUTH EVERY DAY AT BEDTIME NEEDED Medications Administered None recorded. Vitals Height Weight BMI Blood Pressure 5 ft 6.3 in 166.8 lbs 26.7 kg/m2 126/70 mm[Hg] Lab Results Date Name Specimen Result Interpretation Description Value Range Status Address 05/22/2019 HbA1C (Hemoglobin a1C), Blood High A1C W/eag 8.4 % 1.0-5.7 % [facility] Laboratory: [address] [facility] [address], [place] Average Blood Glucose 194 mg/dL [facility] Laboratory: [address] [facility] [address], [place] Allergies Code Code System Name Reaction Severity Status Onset 13673 RxNorm Neosporin ([id number]) Active Problems Name Status Onset Date Source [...] by 12/02/2018 Cancer Surgery Information not available Colonoscopy Information not available Hip Replacement Information not available Tonsillectomy Information not available Vaccine List Vaccine Type Hep B, adult 01/25/20171 mL 02/22/20171 mL 08/24/55886 mL influenza, high dose seasonal 10/09/20160.5 mL 09/17/20170.5 mL 09/04/20180.5 mL pneumococcal conjugate PCV 13 10/09/20160.5 mL pneumococcal polysaccharide PPV23 01/21/20180.5 mL zoster 10/23/20160.65 mL Social History Smoking Status Never Smoker Past Encounters 06/19/2019 Acute Urinary Tract Infection; Chronic Kidney Disease; Overweight Chemo Navarrete MD: [address] [place] [address], Ph. 05/22/2019 Type 2 Diabetes Mellitus Chemo Navarrete MD: [address] [place] [address], Ph. History of Present Illness Note:Dysuria, suprapubic pain, urinary frequency and urgency since 2 weeks ago. Denies hematuria or fever. Review of Systems:ROS as noted in the HPI Review of Systems None recorded. Physical Exam General Adult Exam (male) Reported By: Patient Constitutional: General Appearance: healthy-appearing. Level of Distress: NAD Eyes: Lids and Conjunctivae: non-injected, no discharge ENMT: Ears: TMs clear. Nose: no sinus tenderness. Lips, Teeth, and Gums: no mouth or lip ulcers. Oropharynx: moist mucous membranes Neck: Neck: supple, trachea midline Lungs: Auscultation: breath sounds normal Cardiovascular: Heart Auscultation: RRR, normal S1, normal S2, no murmurs Abdomen: Inspection and Palpation: soft, non-distended, no tenderness, no guarding, no rebound tenderness, no masses, no CVA tenderness Neurologic: Gait and Station: normal gait
--- OUTSIDE RECORDS SUMMARY | 2019-10-15 12:42 | XMS REPORT | Encounter Summary ---
Author Organization Unknown Address [address] [place] [address] Phone [phone] Care Team Providers Care Sand Technician Name Role Phone Dr. Chemo Oconnell 3 [phone] [facility] 2 [phone] Jazmine Snow (Daughter) 63 [phone] Sergo Herrera MD 105 [phone] Kenny Colin MD 107 [phone] Lloyd Romero MD 111 [phone] Nathan Mcneal 118 [phone] Pierre Hsieh MD 130 [phone] Reason for Visit Hyperlipidemia; Benign essential hypertension; [...] appointment* PLEASE SEND BACK CONSULT NOTES TO [phone] 12. Dysphagia gastroenterology referral Discussion Note: None [...] your paperwork for your medical power of deputy attorney general and advanced directives. Be sure that the designated person as well as important family members have copies of those forms as well. Please have contact information of your designee readily available. In the event of hospitalization, please bring those important documents with you for reference. Reminders Provider Appointments Est Patient 11/09/2019 4:00PM Sangita Velazquez MD Lab Microalbumin/creatinine, Ratio, Urine 08/13/2019 [facility] HbA1C (Hemoglobin a1C), Blood 08/13/2019 [facility] Lipid Panel, Serum 08/13/2019 [facility] CMP, Serum or Plasma 08/13/2019 [facility] Referral Gastroenterology Referral 08/13/2019 Kenny Colin MD Gastroenterology Referral 08/13/2019 Kenny Colin MD Procedures None recorded. Surgeries None recorded. Imaging None recorded. Medications Name Start Date Accu-Chek Guide strips USE ONCE DAILY BD Ultra-Fine Mini Pen Needle 31 gauge x 3/16" QD Claritin-D 24 Hour 1 tablet once a day Dymista 137 mcg-50 mcg/spray nasal spray [place] 1 spray every day by nasal route [...] Code System Name Reaction Severity Status Onset 01686 RxNorm Neosporin ([id number]) Active Problems Name Status Onset Date Source [...] Chronic Constipation; Dysphagia Chemo Navarrete MD: [address] [place] [address], Ph. History of Present Illness Mini Cog [...] Level of Distress: NAD. Ambulation: ambulating normally Eyes: Lids and Conjunctivae: non-injected, no discharge. EOM: EOMI ENMT: Ears: TMs clear. Nose: no sinus tenderness. Lips, Teeth, and Gums: no mouth or lip ulcers. Oropharynx: moist mucous membranes Neck: Neck: supple, trachea midline. Thyroid: no enlargement, non-tender Lungs: Auscultation: breath sounds normal Cardiovascular: Heart Auscultation: RRR, normal S1, normal S2, no murmurs. Neck vessels: no carotid bruits Abdomen: Inspection and Palpation: soft, non-distended, no tenderness, no guarding Musculoskeletal:: Motor Strength and Tone: normal, normal tone. Extremities: no edema Neurologic: Gait and Station: normal gait Skin: Inspection and palpation: no rash, no lesions
[2019-10-15 13:25] LABS: BASOPHILS % 0.2 % (0.0-1.0); EOSINOPHILS % 0.1 % (0.0-6.0); HEMATOCRIT 35.5 % (34.2-44.1); HEMOGLOBIN 11.5 g/dL (12.0-16.0); LYMPHOCYTES # (AUTO) 1.3 (1.0-3.2); LYMPHOCYTES % 8.7 % (18.0-39.1); MEAN CORPUSCULAR HEMOGLOBIN 29.4 pg (28-32); MEAN CORPUSCULAR HGB CONC 32.4 g/dL (31-35); MEAN CORPUSCULAR VOLUME 90.8 fL (81-99); MONOCYTES # (AUTO) 1.2 (0.2-0.8); MONOCYTES % 7.9 % (4.4-11.3); NEUTROPHILS # (AUTO) 12.6 (2.1-6.9); NEUTROPHILS % 82.6 % (38.7-80.0); PLATELET COUNT 266 x10e3/uL (140-360); RED BLOOD COUNT 3.91 x10e6/uL (3.6-5.1); RED CELL DISTRIBUTION WIDTH 14.7 % (11.7-14.4)
[2019-10-15 13:46] LABS: ALANINE AMINOTRANSFERASE 49 IU/L (0-55); ALBUMIN 3.5 g/dL (3.5-5.0); ALKALINE PHOSPHATASE 116 IU/L (40-150); ANION GAP 14.2 mmol/L (8-16); BLOOD UREA NITROGEN 26 mg/dL (7-26); BUN/CREATININE RATIO 16 (6-25); CALCIUM 9.3 mg/dL (8.4-10.2); CARBON DIOXIDE 23 mmol/L (22-29); CHLORIDE 101 mmol/L (98-107); CREATINE KINASE 163 IU/L (29-168); CREATININE, SERUM 1.65 mg/dL (0.57-1.11); EST GLOMERULAR FILTRATION RATE 29 ML/MIN (60-); GLUCOSE 336 mg/dL (74-118); POTASSIUM 4.2 mmol/L (3.5-5.1); SODIUM 134 mmol/L (136-145)
[2019-10-15] MEDS ORDERED: DIATRIZOATE MEGL/DIATRIZOA SOD 30 ML BTL PO ONE (13:59)
--- NOTE | 2019-10-15 14:50 | NUR ---
Pt ambulated to the restroom with steady balanced gait. Pt providing a urine specimen.
--- NOTE | 2019-10-15 15:00 | NUR ---
Pt back in the room and her IV on the right forearm blew and she now has a hematoma on the right forearm.
[2019-10-15 15:37] LABS: BILIRUBIN,URINE NEGATIVE (NEGATIVE); CLARITY,URINE CLOUDY (CLEAR); COLOR,URINE YELLOW (YELLOW); KETONES,URINE NEGATIVE (NEGATIVE); LEUKOCYTE ESTERASE ,URINE SMALL (NEGATIVE); NITRITE,URINE NEGATIVE (NEGATIVE); PROTEIN,URINE DIPSTICK 1+ (NEGATIVE); URINE UROBILINOGEN 0.2 mg/dL (0.2 - 1)
--- NOTE | 2019-10-15 15:50 | Diagnostic Imaging Report ---
EXAM: CT Abdomen and Pelvis WITHOUT intravenous contrast INDICATION: Abdominal pain COMPARISON: KUB of 12/19/2008 TECHNIQUE: Abdomen and pelvis were scanned utilizing a multidetector helical scanner from the lung base to the pubic symphysis without administration of IV contrast. Coronal and sagittal reformations were obtained. IV CONTRAST: None ORAL CONTRAST: Gastrografin COMPLICATIONS: None RADIATION DOSE: Total DLP: 552.0 mGy*cm Dose modulation, iterative reconstruction, and/or weight based adjustment of the mA/kV was utilized to reduce the radiation dose to as low as reasonably achievable. FINDINGS: LOWER THORAX: No focal lung base consolidation. Atherosclerotic coronary artery calcifications. Tiny hiatal hernia. HEPATOBILIARY: No focal liver lesion. Unremarkable gallbladder. SPLEEN: No splenomegaly. PANCREAS: No focal masses or ductal dilatation. ADRENALS: No adrenal nodules. KIDNEYS/URETERS: No hydronephrosis, stones, or solid mass lesions. PELVIC ORGANS/BLADDER: Distended fluid-filled bladder. PERITONEUM / RETROPERITONEUM: No free air or fluid. LYMPH NODES: No lymphadenopathy. VESSELS: Diffuse atherosclerotic calcifications of the nonaneurysmal abdominal aorta and major branches. GI TRACT: Diffusely increased stool burden throughout the colon, most notably in the rectum which is distended to 9.1 cm. No abnormal bowel wall thickening. No bowel obstruction. BONES AND SOFT TISSUES: Status post right total hip replacement. No acute osseous injury. No suspicious lytic or blastic lesions. Grade 1 anterolisthesis at L4-5. Degenerative changes of the visualized spine, most notably at T11 where there is a large Schmorl's node and associated superior endplate depression. IMPRESSION: Diffusely increased stool burden throughout the colon, most notably in the rectum. Findings are consistent with constipation and/or fecal impaction. Atherosclerotic arterial calcifications including of the coronary arteries. Signed by: Mckinley Godwin MD on 10/15/2019 3:47 PM
[2019-10-15 15:51] LABS: BACTERIA,URINE MODERATE /HPF; EPITHELIAL CELLS,URINE FEW /LPF; RBC,URINE 0-5 /HPF (0-5)
[2019-10-15] MEDS ORDERED: MINERAL OIL 132 ML BTL PR ONE (16:00)
[2019-10-15] MEDS ORDERED: CITRATE OF MAGNESIA 300ML BOTTLE PO ONE (16:00)
[2019-10-15] MEDS ORDERED: COLACE100 MG PO (17:11)
[2019-10-15 17:56] VITALS: BP 148/73
== END 2019-10-15 17:53 | disposition home or self-care (01) ==
LOC: ER 12:39
DX: R10.9 Unspecified abdominal pain (principal); K56.41 Fecal impaction
CPT/HCPCS: 36415; 74176; 80053; 81001; 82550; 82553; 84484; 85025; 99284